=== PATIENT | male | born 1990 | race Caucasian/White ===

== ENCOUNTER → 2016-07-19 | Outpatient (CLI) | payer BC ==
[2014-03-17 15:30] VITALS: BP 153/64
--- NOTE | 2016-07-19 16:25 | KCIC ---
PROCEDURE [facility]. HISTORY Positive TB skin test. Cough. COMPARISON None available. FINDINGS No acute lung infiltrate or pleural effusion or pulmonary edema or lung mass or pneumothorax is seen. The heart size, pulmonary vasculature, mediastinum and both anthony are unremarkable. The osseous structures appear intact IMPRESSION No acute radiographic abnormality is seen.Specifically, there are no radiographic findings indicative of active tuberculous lung disease. Electronically signed by: Federico London MD (Jul 19, 2016 16:23:12)
== END | disposition home or self-care (01) ==
LOC: KCIC 15:43
PROVIDERS: ATTEND Family Medicine
DX: R76.11 Nonspecific reaction to tuberculin skin test without active tuberculosis (principal); R05 Cough
CPT/HCPCS: 71020